=== PATIENT | male | born 1995 | race Asian ===

== ENCOUNTER 2017-04-18 13:33 | Inpatient (IN) | payer OTHER ==
[~2017-04-18] VITALS: Ht 175.3 cm; Wt 59.1 kg
[2017-04-18] MEDS: NICOTINE 21MG/24HR 1 EA TRANSDERMAL TD SCH ×2 (09:00→20:00)
[2017-04-18 14:34] LABS: MEAN CORPUSCULAR HGB CONC 34.3 g/dl (32.0-36.5); MEAN CORPUSCULAR VOLUME 93.4 fl (80.0-96.0); RED CELL DISTRIBUTION WIDTH 12.9 % (11.5-14.5)
[2017-04-18] MEDS ORDERED: VITMTA PO (14:41)
[2017-04-18] MEDS ORDERED: FISH1000 PO (14:41)
[2017-04-18 14:53] LABS: METHADONE URINE NEGATIVE (NEGATIVE)
[2017-04-18 15:05] LABS: ALBUMIN 4.1 GM/DL (3.2-5.2); ALBUMIN/GLOBULIN RATIO 1.37 (1.00-1.93); ALKALINE PHOSPHATASE 69 U/L (45-117); ALT/SGPT 20 U/L (12-78); ANION GAP 9 MEQ/L (8-16); AST/SGOT 15 U/L (15-37); BILIRUBIN,DIRECT 0.1 MG/DL (0.0-0.2); BILIRUBIN,TOTAL 0.4 MG/DL (0.2-1.0); BLOOD UREA NITROGEN 17 MG/DL (7-18); CALCIUM LEVEL 8.5 MG/DL (8.5-10.1); CARBON DIOXIDE LEVEL 27 MEQ/L (21-32); CHLORIDE LEVEL 104 MEQ/L (98-107); CREATININE FOR GFR 0.75 MG/DL (0.70-1.30); GLOMERULAR FILTRATION RATE > 60.0 (>60); GLUCOSE, FASTING 80 MG/DL (70-105); POTASSIUM SERUM 4.2 MEQ/L (3.5-5.1); SODIUM LEVEL 140 MEQ/L (136-145); TOTAL PROTEIN 7.1 GM/DL (6.4-8.2)
[2017-04-18] MEDS ORDERED: ACETAMINOPHEN TAB 650MG DOSE (2X325MG) PO ONE (16:15)
--- NOTE | 2017-04-18 16:40 | REP ---
CT Head without contrast HISTORY: Blurred vision COMPARISON: None There is no intraparenchymal hemorrhage, acute infarct, mass or midline shift. The ventricular system is normal in appearance. There is no extra cerebral collection. There is no fracture. The visualized sinuses are clear. IMPRESSION: There is no intracranial lesion. Signed by Joao Carrizales MD 04/18/2017 04:31 P
[2017-04-18] MEDS ORDERED: HALOPERIDOL 5 MG TAB PO PRN (18:15)
[2017-04-18] MEDS ORDERED: MOM 30ML SUSPENSION UDC PO PRN (18:15)
[2017-04-18] MEDS ORDERED: MAALOX 30 ML SUSP *UDC PO PRN (18:15)
[2017-04-18] MEDS ORDERED: LORazepam 1 MG TAB PO PRN (18:15)
[2017-04-18 21:30] VITALS: BP 112/59
[2017-04-19 06:00] VITALS: BP 120/54
[2017-04-19] MEDS ORDERED: SERTRALINE HCL 50 MG TAB PO SCH (09:00)
[2017-04-19] MEDS: NICOTINE 21MG/24HR 1 EA TRANSDERMAL TD SCH (09:00)
[2017-04-19] MEDS ORDERED: RIZATRIPTAN BENZOATE 10 MG TAB PO STA (11:44)
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
[2017-04-19] MEDS: RIZATRIPTAN BENZOATE 10 MG TAB PO PRN (17:30)
[2017-04-19 18:00] VITALS: BP 107/57
[2017-04-19] MEDS: PRAZOSIN 1 MG CAP PO SCH (22:07)
[2017-04-19] MEDS: ARIPiprazole 2 MG TAB PO SCH (22:07)
[2017-04-20 07:04] VITALS: BP 129/59
[2017-04-20] MEDS: NICOTINE 21MG/24HR 1 EA TRANSDERMAL TD SCH (08:53)
[2017-04-20] MEDS: DULoxetine 30 MG CAP (CYMBALTA) PO SCH (08:59)
[2017-04-20] MEDS: ACETAMINOPHEN TAB 650MG DOSE (2X325MG) PO PRN (08:59)
[2017-04-20] MEDS: ARIPiprazole 2 MG TAB PO SCH ×3 (08:59→21:52)
[2017-04-20 18:00] VITALS: BP 115/58
[2017-04-20] MEDS: PRAZOSIN 1 MG CAP PO SCH ×2 (21:00→21:53)
[2017-04-21 06:50] VITALS: BP 105/54
[2017-04-21] MEDS: NICOTINE 21MG/24HR 1 EA TRANSDERMAL TD SCH (09:00)
[2017-04-21] MEDS: ARIPiprazole 2 MG TAB PO SCH ×2 (09:14→20:55)
[2017-04-21] MEDS: DULoxetine 30 MG CAP (CYMBALTA) PO SCH (09:14)
--- NOTE | 2017-04-21 15:16 | MHIPN ---
DATE: 04/20/2017 The patient today is very quiet. He states, "I'm a little better." He said his sleep was "on and off." He says yesterday he did not hear any voices or today. MENTAL STATUS EXAM: This patient is alert and oriented times three. Eye contact is fair. Psychomotor activity is decreased. There is no formal thought disorder noted. Mood is "better." Affect is flat. He says that the hallucinations have stopped since yesterday. Concentration is fair. Insight and judgment poor. DIAGNOSIS: Major depressive disorder with psychotic symptoms. Post-traumatic stress disorder. TREATMENT PLAN: At this point, we will continue to monitor the patient for continued resolution of psychotic symptoms and stabilization of his mood and resolution of suicidal ideation. We will continue to titrate the medication as needed.
[2017-04-21] MEDS: ACETAMINOPHEN TAB 650MG DOSE (2X325MG) PO PRN (18:23)
[2017-04-21 18:43] VITALS: BP 129/73
[2017-04-21] MEDS: traZODone 50 MG TAB PO PRN (20:55)
[2017-04-21] MEDS: PRAZOSIN 1 MG CAP PO SCH (20:56)
--- NOTE | 2017-04-22 06:43 | IPN ---
DATE OF SERVICE: 04/21/2017 The patient today states, "I am doing good". He said he slept good, but he says that he slept too long and when he leaves the hospital he only plans to take his medication on the weekend. I offered to cut the dose down because maybe it is less sedating. I tried to explain that he has to take his medicine every day, but he continues to insist that he planned to only take it on the weekends when he leaves. MENTAL STATUS EXAMINATION: This patient is alert and oriented times three. Eye contact is fairly good. Psychomotor activity is normal. No formal thought disorder. He said his mood is good. Affect is constricted, but appropriate to his mood. I did not elicit any psychotic symptoms. He was denying suicidal or homicidal ideation. Concentration fair. Insight and judgment is poor. DIAGNOSES: Major depressive disorder with psychotic symptoms. Post traumatic stress disorder. TREATMENT PLAN: We will continue to monitor the patient for continued resolution of psychotic symptoms and resolution of suicidal ideation. We will continue to encourage the patient and educate the patient on how he needs to take his medications every day.
[2017-04-22 06:45] VITALS: BP 115/55
[2017-04-22 06:50] VITALS: BP 115/55
[2017-04-22] MEDS: NICOTINE 21MG/24HR 1 EA TRANSDERMAL TD SCH (08:19)
[2017-04-22] MEDS: ARIPiprazole 2 MG TAB PO SCH ×2 (08:19→20:54)
[2017-04-22] MEDS: DULoxetine 30 MG CAP (CYMBALTA) PO SCH (08:19)
--- NOTE | 2017-04-22 16:11 | REP ---
Cervical spine series: Limited three-view study: History: Excruciating pain. No response to medications. No comparison imaging. Findings: Lateral view shows preserved vertebral body heights and normal alignment. Disc spaces are maintained. Pedicles and posterior elements are intact on AP and open mouth odontoid views. No bony destructive lesion is seen. Impression: Negative views of the cervical spine. Signed by Lobo Reaves MD 04/22/2017 04:14 P
[2017-04-22 18:00] VITALS: BP 111/56
[2017-04-22] MEDS: PRAZOSIN 1 MG CAP PO SCH (20:54)
[2017-04-22] MEDS: traZODone 50 MG TAB PO PRN (20:54)
--- NOTE | 2017-04-23 07:13 | MHIPN ---
DATE OF SERVICE: 04/22/2017 SUBJECTIVE: Patient reports feeling well, he asked to be discharged. He says that he has a lot of things to take care of, that is why he wants to be discharged. Patient reported sleeping well last night. His appetite is slowly improving. He denies current suicidal thoughts. MENTAL STATUS EXAMINATION: Patient is alert and oriented times three, cooperative with interview, receptive with good attitude and demeanor. Patient has good eye contact, good hygiene. He has no psychomotor retardation or agitation, he denies auditory or visual hallucinations, he is not delusional and is not responding to internal stimuli. He denies suicidal or homicidal thoughts, his mood is depressed-sad and his affect is constricted. Insight and judgment are poor. DIAGNOSIS: Major depressive disorder with psychotic symptoms. Posttraumatic distress disorder. TREATMENT PLAN: We will continue to monitor the patient, followup closely and adjust medications if necessary. Patient is to be monitored at the inpatient mental health unit to be stabilized. Will followup.
[2017-04-23 07:27] VITALS: BP 92/51
[2017-04-23] MEDS: NICOTINE 21MG/24HR 1 EA TRANSDERMAL TD SCH (08:29)
[2017-04-23] MEDS: DULoxetine 30 MG CAP (CYMBALTA) PO SCH (08:29)
[2017-04-23] MEDS: ARIPiprazole 2 MG TAB PO SCH ×2 (08:30→22:07)
[2017-04-23] MEDS: RIZATRIPTAN BENZOATE 10 MG TAB PO PRN (11:06)
[2017-04-23 18:00] VITALS: BP 133/77
[2017-04-23] MEDS: traZODone 50 MG TAB PO PRN (22:07)
[2017-04-23] MEDS: PRAZOSIN 1 MG CAP PO SCH (22:08)
[2017-04-24 07:12] VITALS: BP 111/58
[2017-04-24] MEDS: NICOTINE 21MG/24HR 1 EA TRANSDERMAL TD SCH (09:00)
[2017-04-24] MEDS: ARIPiprazole 2 MG TAB PO SCH ×2 (10:07→21:14)
[2017-04-24] MEDS: DULoxetine 30 MG CAP (CYMBALTA) PO SCH (10:07)
--- NOTE | 2017-04-24 17:27 | MHIPN ---
DATE: 04/23/2017 22-year-old male who was brought by his chain of command to the emergency room because he was having depressed mood, experienced suicidal ideation and expressed that he was hearing, and hallucinations that were ordering him to jump out his window. SUBJECTIVE: The patient reports he feels well, he is not attending groups, he says that he does not wake up early in the morning and for that reason he has not been going to yoga. Continues to report migraine headaches and pain in his neck, previous studies, x-rays and CT scan show no abnormalities. The patient reports feeling well, denies depression. MENTAL STATUS EXAM: The patient is alert and oriented times three, cooperative with interview. He smiles spontaneously. His speech is spontaneous and fluid. His thought process is intact. His thought content is coherent. His memory is intact. Attention and concentration are fair. He denies suicidal ideation. Denies homicidal ideation, denies auditory and visual hallucinations and denies thought delusions. He is not responding to internal stimuli. Insight and judgment have improved. DIAGNOSES: 1. Major depressive disorder with psychotic symptoms. 2. Posttraumatic stress disorder. TREATMENT PLAN: The patient complained today of not being able to fall asleep last night. Trazodone was increased to 100 mg by mouth at bedtime. He has been instructed to attend groups, to learn coping skills. If he attends groups tomorrow and shows a better insight, he could possibly be discharged next April 25. Will followup.
[2017-04-24 18:00] VITALS: BP 134/67
[2017-04-24] MEDS: RIZATRIPTAN BENZOATE 10 MG TAB PO PRN (19:22)
[2017-04-24 21:14] VITALS: BP 134/67
[2017-04-24] MEDS: traZODone 50 MG TAB PO PRN (21:14)
[2017-04-24] MEDS: PRAZOSIN 1 MG CAP PO SCH (21:14)
[2017-04-25 06:50] VITALS: BP 85/62
[2017-04-25] MEDS: DULoxetine 30 MG CAP (CYMBALTA) PO SCH (08:06)
[2017-04-25] MEDS: ARIPiprazole 2 MG TAB PO SCH (08:06)
[2017-04-25] MEDS: NICOTINE 21MG/24HR 1 EA TRANSDERMAL TD SCH (08:07)
[2017-04-25] MEDS ORDERED: NICO21PAT TD (09:15)
[2017-04-25] MEDS ORDERED: MAXA10TA14 PO (09:15)
[2017-04-25] MEDS ORDERED: ARIP2TAB PO (09:15)
[2017-04-25] MEDS ORDERED: MINI1CAP PO (09:15)
[2017-04-25] MEDS ORDERED: TRAZO50TA PO (09:15)
[2017-04-25] MEDS ORDERED: DULO30CA PO (09:15)
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
--- NOTE | 2017-04-26 11:26 | MHIPN ---
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 SUBJECTIVE: Patient reports feeling well, staff reports that he has been interacting with peers and staff, has been attending groups, has been smiling and sociable. OBJECTIVE: Patient is alert and oriented times three, he is cooperative, with good eye contact, dressed in hospital clothes. His speech is spontaneous and fluent, his thought process is intact and his thought content is coherent. He denies suicidal or homicidal ideations, denies thought delusions, denies auditory and visual hallucinations. His memory is intact, his attention and concentration are good. Insight and judgment are good. ASSESSMENT: Patient has improved, he is not showing signs of altered thoughts or severe depression, his impulse control, judgment and insight have improved. Patient could be discharged tomorrow 04/25/2017 after meeting with his Chain of Command. Will monitor closely and followup.
== END 2017-04-25 11:00 | disposition home or self-care (01) | DRG 885 ==
LOC: M ED 13:33 → M ED INP 18:11 → M PSY 21:40
PROVIDERS: ADMIT Psychiatry & Neurology Psychiatry; ATTEND Psychiatry & Neurology Psychiatry
DX: F32.3 Major depressive disorder, single episode, severe with psychotic features (principal); F43.10 Post-traumatic stress disorder, unspecified; Z79.899 Other long term (current) drug therapy

== ENCOUNTER → 2017-05-24 | Outpatient (CLI) | payer OTHER ==
[~2017-05-24] MED LIST: ARIP2TAB PO; DIVA500T3 PO; DULO30CA PO; FISH1000 PO; ISOVUE-370 76% 100ML VIAL (Q9967) As Ordered ONE; MAXA10TA14 PO; MINI1CAP PO; NAPR500T PO; NICO21PAT TD; TRAZO50TA PO; VITMTA PO; ZOFR4TAB3 PO
--- NOTE | 2017-05-24 12:13 | REP ---
CT BRAIN WITHOUT AND WITH CONTRAST: 05/24/2017. COMPARISON: 04/18/2017. CLINICAL HISTORY: Headaches. TECHNIQUE: The patient received 75 ml Isovue in 370. Pre- and post contrast images were obtained today. FINDINGS: Lateral ventricles midline, symmetric and without dilatation or displacement. Basal ganglia symmetric and normal. Riley white junction differentiation is well maintained. The cortical stripe preserved. There is no vascular territory infarct, hemorrhage, mass, mass effect or edema. No midline shift. Brainstem and cerebellum grossly unremarkable. Basal cisterns intact. The mastoids are clear. Visualized sinuses show a few ethmoid air cells with minor mucosal thickening. Skull base and calvarium without fracture or focal lesion. After contrast administration, the cerebral vessels show no evidence of vascular malformation. No gross aneurysm/vascular lesion. No abnormal meningeal enhancement, gyriform enhancement, enhancing mass or other findings. Orbits seen only in part but were grossly unremarkable. The calvarium and skull base show no fracture or focal lesion. Visualized sinuses and mastoids clear. IMPRESSION: 1. Negative CT brain without and with contrast. No intracranial hemorrhage, acute infarct, mass, edema or mass effect. 2. Basal cisterns intact. Sinuses and mastoids clear. Skull base and calvarium without focal lesion. No intracranial finding. Signed by Ramon Orr MD 05/24/2017 03:54 P
== END ==
LOC: M RAD 11:20
PROVIDERS: ATTEND Psychiatry & Neurology Neurology
DX: R51 Headache (principal)
CPT/HCPCS: 70470; Q9967

== ENCOUNTER 2017-06-12 06:58 | Emergency (ER) | payer OTHER ==
[~2017-06-12] VITALS: Ht 175.3 cm; Wt 63.6 kg
[~2017-06-12 06:58] MED LIST changes: -DIVA500T3 PO; -ISOVUE-370 76% 100ML VIAL (Q9967) As Ordered ONE; -NAPR500T PO; -ZOFR4TAB3 PO
[2017-06-12] MEDS ORDERED: DIVA500T3 PO (07:37)
[2017-06-12] MEDS ORDERED: KETOROLAC 60 MG/2 ML VIAL (J1885) IM ONE (08:30)
[2017-06-12] MEDS ORDERED: ZOFR4TAB3 PO (08:49)
[2017-06-12] MEDS ORDERED: NAPR500T PO (08:57)
[2017-06-12] MEDS ORDERED: ONDANSETRON 4 MG ORAL DISINTEGRATING TAB (S0181) PO ONE (09:00)
[2017-06-12 09:18] VITALS: BP 130/67
== END 2017-06-12 09:20 | disposition home or self-care (01) ==
LOC: M ED 06:58
DX: G43.709 Chronic migraine without aura, not intractable, without status migrainosus (principal); Z79.899 Other long term (current) drug therapy
CPT/HCPCS: 96372; 99282; J1885

== ENCOUNTER 2017-08-08 23:45 | Emergency (ER) | payer OTHER ==
[~2017-08-08] VITALS: Ht 175.3 cm; Wt 63.6 kg
[~2017-08-08 23:45] MED LIST changes: +DIVA500T3 PO; +NAPR500T PO; +ZOFR4TAB3 PO
[2017-08-08] MEDS ORDERED: SERO200T PO (23:57)
[2017-08-09] MEDS ORDERED: NS 1,000 ML IV ONE (03:15)
[2017-08-09] MEDS ORDERED: ONDANSETRON 4MG/2ML VIAL (J2405) IV ONE (03:15)
[2017-08-09 04:28] VITALS: BP 98/49
[2017-08-09] MEDS ORDERED: ZOFR4TAB3 PO (04:33)
== END 2017-08-09 04:47 | disposition home or self-care (01) ==
LOC: M ED 23:45
DX: A08.4 Viral intestinal infection, unspecified (principal); F31.9 Bipolar disorder, unspecified; G43.909 Migraine, unspecified, not intractable, without status migrainosus; Z79.899 Other long term (current) drug therapy
CPT/HCPCS: 96374; 99284; J2405

== ENCOUNTER 2017-10-08 22:16 | Emergency (ER) | payer OTHER ==
[2017-10-08 23:05] LABS: BASO % 0.4 % (0.0-1.0); EOS # 0.1 10^3/uL (0.0-0.50); EOS % 0.7 % (0.0-3.0); HEMATOCRIT 43.4 % (42.0-52.0); HEMOGLOBIN 15.2 g/dl (14.0-18.0); IMMATURE GRANULOCYTE % 0.1 % (0-0); LYMPH # 3.2 10^3/uL (1.5-6.5); LYMPH % 38.2 % (24.0-44.0); MEAN CORPUSCULAR HEMOGLOBIN 32.5 pg (27.0-33.0); MEAN CORPUSCULAR VOLUME 92.9 fl (80.0-96.0); NEUTROPHILS % 48.6 % (36.0-66.0); PLATELET COUNT, AUTOMATED 289 10^3/uL (150-450); RED BLOOD COUNT 4.67 10^6/uL (4.30-6.10); RED CELL DISTRIBUTION WIDTH 11.9 % (11.5-14.5); WHITE BLOOD COUNT 8.2 10^3/uL (4.0-10.0)
[2017-10-08] MEDS: HYDROmorphone HCL 1 MG/ML SYRINGE (J1170) IM (23:11)
[2017-10-08 23:20] LABS: ANION GAP 8 MEQ/L (8-16); BLOOD UREA NITROGEN 16 MG/DL (7-18); CALCIUM LEVEL 9.2 MG/DL (8.5-10.1); CARBON DIOXIDE LEVEL 26 MEQ/L (21-32); CHLORIDE LEVEL 106 MEQ/L (98-107); CREATININE FOR GFR 0.81 MG/DL (0.70-1.30); GLOMERULAR FILTRATION RATE > 60.0 (>60); GLUCOSE, FASTING 93 MG/DL (70-100); POTASSIUM SERUM 3.7 MEQ/L (3.5-5.1); SODIUM LEVEL 140 MEQ/L (136-145)
[2017-10-08 23:41] LABS: AMMONIA 44 uMOL/L (<32)
== END 2017-10-09 00:13 | disposition home or self-care (01) ==
LOC: M ED 10-09 00:13
DX: G43.709 Chronic migraine without aura, not intractable, without status migrainosus (principal); Z91.14 Patient's other noncompliance with medication regimen; F17.200 Nicotine dependence, unspecified, uncomplicated
CPT/HCPCS: J1170